=== PATIENT | male | born 1940 | race Caucasian/White ===

== ENCOUNTER 2016-04-21 15:50 | Outpatient (CLI) | payer MEDICARE | END 2016-04-21 15:51 | disposition home or self-care (01) | LOC: NC 15:50 | PROVIDERS: ATTEND Family Medicine | DX: E11.8 Type 2 diabetes mellitus with unspecified complications (principal); Z71.3 Dietary counseling and surveillance; Z87.891 Personal history of nicotine dependence ==

== ENCOUNTER 2016-05-06 17:30 | Outpatient (CLI) | payer MEDICARE | END 2016-05-06 17:31 | disposition home or self-care (01) | LOC: NC 17:30 | PROVIDERS: ATTEND Family Medicine | DX: E11.8 Type 2 diabetes mellitus with unspecified complications (principal); Z71.3 Dietary counseling and surveillance ==

== ENCOUNTER 2016-05-13 17:30 | Outpatient (CLI) | payer MEDICARE | END 2016-05-13 17:31 | disposition home or self-care (01) | LOC: NC 17:30 | PROVIDERS: ATTEND Family Medicine | DX: E11.8 Type 2 diabetes mellitus with unspecified complications (principal); Z71.3 Dietary counseling and surveillance; Z68.36 Body mass index [BMI] 36.0-36.9, adult; I25.810 Atherosclerosis of coronary artery bypass graft(s) without angina pectoris; E78.00 Pure hypercholesterolemia, unspecified; I10 Essential (primary) hypertension ==

== ENCOUNTER 2016-05-20 17:30 | Outpatient (CLI) | payer MEDICARE | END 2016-05-20 17:31 | disposition home or self-care (01) | LOC: NC 17:30 | PROVIDERS: ATTEND Family Medicine | DX: Z71.3 Dietary counseling and surveillance (principal); E11.8 Type 2 diabetes mellitus with unspecified complications ==

== ENCOUNTER → 2016-05-27 | Outpatient (CLI) | payer MEDICARE | END | disposition home or self-care (01) | LOC: NC 17:30 | PROVIDERS: ATTEND Family Medicine | DX: E11.8 Type 2 diabetes mellitus with unspecified complications (principal); Z71.3 Dietary counseling and surveillance; Z68.36 Body mass index [BMI] 36.0-36.9, adult; Z87.891 Personal history of nicotine dependence ==

== ENCOUNTER 2016-06-16 09:14 | Inpatient (IN) | payer MEDICARE ==
[2016-06-16] MEDS ORDERED: IOPAMIDOL 370 (76%) 100 ML VIAL IV ONE (09:15)
[2016-06-16] MEDS ORDERED: LACTATED RINGERS 1,000 ML ONE (09:42)
[2016-06-16 09:58] LABS: ABSOLUTE NEUTROPHIL COUNT 12.7 K/mm3 (1.8-7.7); BASO % 0.1 % (0.2-1.0); HEMATOCRIT 40.1 % (32.0-52.0); HEMOGLOBIN 13.3 gm/l (14.0-18.0); IMM NEUT # 0.1 K/mm3 (0-0.2); IMM NEUT% 0.6 % (0-1); LYMPH # 0.3 (1.0-4.8); LYMPH % 2.2 % (15-45); MEAN CELL VOLUME 90.1 fl (80.0-94.0); MEAN CORPUSCULAR HEMOGLOBIN 29.9 pg (27.0-31.0); MEAN CORPUSCULAR HGB CONC 33.2 g/dl (33.0-37.0); MEAN PLATELET VOLUME 8.9 fl (7.4-10.4); MONO # 0.8 (0.0-0.8); MONO % 5.6 % (4-12); NEUT % 91.5 % (43-75); PLATELET COUNT 177 K/mm3 (130-400); RED CELL DISTRIBUTION WIDTH 13.6 % (11.5-14.5)
[2016-06-16 10:19] LABS: ALB/GLOB RATIO 1.4 (>1.0); ALBUMIN 3.7 gm/dL (3.5-5.7); CALCIUM 9.1 mg/dL (8.6-10.3)
[2016-06-16 10:42] LABS: BAND 24 % (0-10); BASOPHIL 0 % (0-1); EOSINOPHIL 0 % (1-3); LYMPHOCYTE 1 % (15-45); MONOCYTE 4 % (4-12); NEUTROPHILS 71 % (43-75); PLATELET ESTIMATE NORMAL (NORMAL); TOTAL CELLS COUNTED 100
--- NOTE | 2016-06-16 11:08 | CT ---
CTA CHEST FOR PE COMPARISON: None HISTORY: Shortness of breath and hemoptysis. Technique: Intravenous injection 80 mL Isovue-370. Using a [employer] Aquilion [address] scanner, following a CT angiogram protocol, images obtained through the thorax. Under concurrent supervision and interpretation, requiring a separate 3-D workstation, the technologist created 3-D CT angiograms. An automated dose reduction technique was used to minimize patient radiation dose. Dose information: DLP(mGycm): 1291.20 FINDINGS: Pulmonary arteries and veins: Excellent contrast opacification. No pulmonary embolism. Aorta: Normal Heart and coronary arteries: Coronary artery atherosclerotic calcific plaquing. Normal heart size. Lungs: Consolidation in the right lower lobe. Trachea and bronchi: Normal. Mediastinum and he: Right hilar adenopathy. Right paratracheal adenopathy. Pleura and pericardium: Normal. Chest wall: Sternotomy wires. Spine: No acute finding. Degenerative changes. Upper abdomen:Normal. 3-D CT angiogram: Normal. IMPRESSION: 1. Right lower lobe lobar pneumonia. Associated right hilar and right paratracheal mediastinal adenopathy. 2. CT pulmonary angiogram negative for pulmonary embolism. The report was sent to the emergency department electronic medical record system 06/16/2016 at 11:10
[2016-06-16] MEDS ORDERED: CEFTRIAXONE 1 GRAM DUPLEX 50 ML IV ONE (11:35)
[2016-06-16] MEDS ORDERED: AZITHROMYCIN 500 MG VIAL ONE (11:35)
[2016-06-16] MEDS ORDERED: SODIUM CHLORIDE 0.9% 250 ML IV ONE (11:35)
[2016-06-16 12:19] VITALS: BMI 35.3
[2016-06-16] MEDS ORDERED: BISACODYL 5 MG TABLET.EC PO PRN (13:01)
[2016-06-16] MEDS ORDERED: BISACODYL 10 MG SUP PR PRN (13:01)
[2016-06-16] MEDS ORDERED: MAGNESIUM HYDROXIDE 30 ML UDCUP PO PRN (13:01)
[2016-06-16] MEDS ORDERED: BLISTEX LIPSTICK 1 EACH TP PRN (13:01)
[2016-06-16] MEDS ORDERED: MENTHOL/CETYLPYRD 1 EACH LOZENGE PO PRN (13:01)
[2016-06-16] MEDS ORDERED: ALBUTEROL NEB 2.5 MG/3 ML VIAL.NEB NEB PRN (13:07)
[2016-06-16] MEDS: AMLODIPINE BESYLATE 5 MG TABLET PO SCH (13:43)
[2016-06-16] MEDS: ISOSORBIDE MONONITRATE 30 MG TAB.SR PO SCH (13:43)
[2016-06-16] MEDS: ENOXAPARIN SODIUM 40 MG/0.4 ML SYRINGE SUB-Q SCH (13:43)
[2016-06-16] MEDS: POLYETHYLENE GLYCOL 3350 17 G POWD.SUSP PO SCH (13:43)
[2016-06-16] MEDS: INSULIN ASPART (DOSE) 100 UNITS/1 ML SUB-Q PRN (13:54)
[2016-06-16] MEDS: METOPROLOL SUCCINATE 25 MG TAB.ER.24H PO SCH (14:05)
--- NOTE | 2016-06-16 14:05 | HP ---
Bandar Singh [id number] : 1940 DATE OF ADMISSION: 06/16/2016 IDENTIFICATION: Mr. Singh is a 76-year-old followed by Dr. April Gamble. CHIEF COMPLAINT: Cough and dyspnea. HISTORY OF PRESENT ILLNESS: Mr. Singh reports cold symptoms for the last week. His had an upper respiratory infection as well, but then last night his dyspnea got much worse, his cough started producing brown sputum and became bloody this morning, and he developed fever with sweats last night. He went into the clinic and was found to be hypoxemic and was referred to the emergency department. On evaluation in the emergency department CT scan of the chest reveals a right lower lobe infiltrate. He also had persistent hypoxemia requiring supplemental oxygen. He was treated with ceftriaxone and azithromycin and referred to the hospitalist service. REVIEW OF SYSTEMS: HEENT: No headache, lightheadedness, or loss of consciousness. Denies problems with eyes, ears, nose, or throat. Respiratory: As per history of present illness. Cardiac: No chest pain or palpitations. Gastrointestinal: No nausea, vomiting, dyspepsia or reflux. He does report constipation, no hematochezia or melana. Genitourinary: No symptoms. Musculoskeletal: Denies symptoms. Constitutional: Has had fever over night. PAST MEDICAL HISTORY: 1. Diabetes mellitus type 2, not on insulin therapy. 2. Hypertension. 3. Coronary artery disease status post three vessel bypass grafting in January 2008. He had transient postoperative atrial fibrillation. 4. Obesity with body mass index of 35.4. 5. Chronic mild anemia. 6. Clinic records indicate dyslipidemia. Patient does not believe that is correct. 7. Vitamin D deficiency. PAST SURGICAL HISTORY: 1. Four different inguinal hernia repair procedures. 2. Coronary artery bypass grafting three vessels in January 2008. ALLERGIES: None known. MEDICATIONS: 1. Isosorbide mononitrate 30 mg by mouth daily. 2. Vitamin D 2000 international units daily. 3. Metoprolol succinate 12.5 mg by mouth daily. 4. Garlic one tablet daily. 5. Amlodipine 10 mg daily. 6. Aspirin 81 mg twice daily. 7. Glipizide 20 mg twice daily. 8. Cyanoclobalamin 2000 mcg by mouth daily. 9. Metformin 1000 mg by mouth daily. 10. Lisinopril 20 mg by mouth daily. 11. Turmeric 500 mg daily. 12. Multivitamin one daily. HABITS: He is a former smoker with a 35 pack year history, but quit 35 years ago. No alcohol or other drugs. SOCIAL HISTORY: Lives with his outside of [place]. They have three dogs. He is active. Was out on a tractor on Wednesday disking a field and grading his driveway. FAMILY HISTORY: Both parents of cancer. Diabetes runs in the family. He had a younger brother who of complications of diabetes. PHYSICAL EXAMINATION: GENERAL: This is a pleasant 76-year-old with audible respiratory rhonchi and coughing. VITAL SIGNS: Temperature 98.9 degrees Fahrenheit, pulse 87, blood pressure 117/54, respiratory rate 20, oxygen saturation 84% on room air, 90% on 5 liters by nasal cannula. HEENT: Pupils equal, round, and reactive. Extraocular muscles intact. Oropharynx is moist. Dentition in moderate condition. CHEST: Rhonchi throughout. Air movement is somewhat decreased. HEART: Regular. No murmur. ABDOMEN: Obese, soft, nontender, normal bowel tones, no organomegaly. EXTREMITIES: Decreased with palpable dorsalis pedis pulses. No cyanosis, clubbing, or edema. NEUROLOGIC: Alert and oriented. No focal deficits. LABORATORIES: White blood cell count 13.9 with 24% bands, 71% neutrophils. Hemoglobin and hematocrit 13.3, and 43.1, platelets 177. Sodium 132, potassium 4.3, chloride 99, CO2 22, BUN 17, creatinine 0.9, glucose 304, bilirubin 2.5, B-type natiuretic peptide 340. DIAGNOSTICS: CT scan of the chest shows right lower lobe pneumonia associated with right hilar and right paratracheal mediastinal adenopathy, negative for pulmonary embolism, no pulmonary vascular congestion was noted. EKG sinus rhythm with bifascicular block. ASSESSMENT: Mr. Singh is a 76-year-old with community acquired presumed bacterial pneumonia accompanied by acute hypoxic respiratory failure. He has underlying chronic mild anemia, diabetes mellitus type 2, not on insulin, coronary artery disease, hypertension, and obesity. He does have an acute hyponatremia related to his acute illness. PLAN: 1. Admit to med/surg. 2. Continue treatment with ceftriaxone and azithromycin. 3. Supplemental oxygen as needed. 4. Respiratory treatments with albuterol and Atrovent. 5. Continue outpatient medications. 6. Full code status. 7. Venous thrombosis prophylaxis with enoxaparin. 8. For diabetes will hold metformin, check blood sugars before meals and evening and cover with insulin as necessary. JOB: [id number]
[2016-06-16] MEDS: ACETAMINOPHEN 325 MG TABLET PO PRN ×2 (15:16→20:56)
[2016-06-16] MEDS: ALBUTEROL/IPRATROPIUM 2.5/0.5 MG 3 ML/EACH DOSE NEB SCH ×2 (15:26→20:42)
[2016-06-16] MEDS: GLIPIZIDE 10 MG TABLET PO SCH (16:50)
[2016-06-16] MEDS: DOCUSATE SODIUM 100 MG CAPSULE PO SCH (20:56)
[2016-06-16] MEDS: ASPIRIN CHEWTAB 81 MG TABLET PO SCH (20:56)
[2016-06-17 06:06] LABS: BASO % 0.3 % (0.2-1.0); EOS # 0.1 (0.0-0.5); EOS % 0.4 % (0.9-2.9); HEMATOCRIT 37.4 % (32.0-52.0); HEMOGLOBIN 12.2 gm/l (14.0-18.0); IMM NEUT # 0.1 K/mm3 (0-0.2); IMM NEUT% 0.7 % (0-1); LYMPH # 0.6 (1.0-4.8); LYMPH % 5.6 % (15-45); MEAN CELL VOLUME 90.8 fl (80.0-94.0); MEAN CORPUSCULAR HEMOGLOBIN 29.6 pg (27.0-31.0); MEAN CORPUSCULAR HGB CONC 32.6 g/dl (33.0-37.0); MEAN PLATELET VOLUME 9.2 fl (7.4-10.4); MONO # 0.6 (0.0-0.8); PLATELET COUNT 180 K/mm3 (130-400); RED CELL DISTRIBUTION WIDTH 13.5 % (11.5-14.5)
[2016-06-17] MEDS ORDERED: NITROGLYCERIN 0.4 MG/TAB.SUBL BOT SL PRN (07:40)
[2016-06-17] MEDS: GLIPIZIDE 10 MG TABLET PO SCH ×2 (08:11→17:12)
[2016-06-17] MEDS: ALBUTEROL/IPRATROPIUM 2.5/0.5 MG 3 ML/EACH DOSE NEB SCH ×4 (08:15→19:44)
[2016-06-17] MEDS: ATORVASTATIN CALCIUM 10 MG TABLET PO SCH (09:23)
[2016-06-17] MEDS: LISINOPRIL 20 MG TABLET PO SCH (09:24)
[2016-06-17] MEDS: AMLODIPINE BESYLATE 5 MG TABLET PO SCH (09:24)
[2016-06-17] MEDS: POLYETHYLENE GLYCOL 3350 17 G POWD.SUSP PO SCH (09:25)
[2016-06-17] MEDS: DOCUSATE SODIUM 100 MG CAPSULE PO SCH ×2 (09:25→21:09)
[2016-06-17] MEDS: ASPIRIN CHEWTAB 81 MG TABLET PO SCH ×2 (09:25→21:09)
[2016-06-17] MEDS: ISOSORBIDE MONONITRATE 30 MG TAB.SR PO SCH (09:25)
[2016-06-17] MEDS: METOPROLOL SUCCINATE 25 MG TAB.ER.24H PO SCH (09:50)
[2016-06-17] MEDS: SODIUM CHLORIDE 0.9% 100 ML IV PRN (11:04)
[2016-06-17] MEDS: CEFTRIAXONE 1 GRAM DUPLEX 1 G in Premix (D5W) 50 ml 1 EACH IV SCH (11:04)
[2016-06-17] MEDS: AZITHROMYCIN 500 MG in SODIUM CHLORIDE 0.9% 250 ML IV SCH (11:43)
[2016-06-17] MEDS: INSULIN ASPART (DOSE) 100 UNITS/1 ML SUB-Q PRN ×2 (12:37→21:18)
--- NOTE | 2016-06-17 12:41 | PDOC43 ---
- Subjective Chief Complaint: pneumonia Patient reports feeling better. Breathing better. Sitting up eating. Strength better. - Objective Vital Signs Temperature 98.8 F 06/17/16 07:56 Pulse Rate 71 06/17/16 12:01 Respiratory Rate 18 06/17/16 12:01 Blood Pressure 115/65 06/17/16 07:56 O2 Saturation by Pulse Oximetry 90 06/17/16 12:01 Oxygen Delivery Method Nasal Cannula Oxygen Flow Rate 4 Vital Signs Last 12 Hours Temp Pulse Resp BP Pulse Ox 06/17/16 12:01 71 18 90 06/17/16 08:15 78 18 92 06/17/16 08:00 18 06/17/16 07:56 98.8 F 78 20 115/65 94 06/17/16 02:00 20 06/17/16 01:28 98.7 F 80 20 117/68 90 Intake and Output 06/15/16 06/16/16 06/17/16 23:59 23:59 23:59 Intake Total 620 1775 Output Total 400 850 Balance 220 925 General: Alert, Cooperative, No Acute Distress Lungs: Other (R posterior lung correa with crackles, rhonchi. Some rhonchi noted anteriorly.) Abdomen: Soft, Normal Bowel Sounds, Non-Distended, No Tenderness Extremities: No Edema, No Tenderness Neurological: Normal Speech Psych/Mental Status: Normal Affect Laboratory 06/17/16 05:30 06/17/16 06/17/16 06/17/16 11:52 08:13 05:30 RBC 4.12 L MCHC 32.6 L POC Capillary Glucose 214 H 135 H 06/16/16 06/16/16 16:48 13:01 RBC MCHC POC Capillary Glucose 146 H 234 H other labs still pending this am, analyzer reported down today Current Medications: Current meds reviewed in EMR. Active Medications Acetaminophen (Tylenol) 650 mg PO Q6H PRN PRN Reason: Pain or Temperature > 100.5 F Last Admin: 06/16/16 20:56 Dose: 650 mg Albuterol Sulfate (Ventolin Inhalation Solution (Dose)) 2.5 mg NEB Q2H PRN PRN Reason: Wheezing Albuterol/Ipratropium (Duoneb) 3 ml NEB 08,12,16,20 TYLER Last Admin: 06/17/16 12:01 Dose: 3 ml Amlodipine Besylate (Norvasc) 10 mg PO DAILY [facility] Last Admin: 06/17/16 09:24 Dose: 10 mg Aspirin (Aspirin Chewtab) 81 mg PO BID [facility] Last Admin: 06/17/16 09:25 Dose: 81 mg Atorvastatin Calcium (Lipitor) 5 mg PO DAILY [facility] Last Admin: 06/17/16 09:23 Dose: 5 mg Benzocaine/Menthol (Cepacol) 1 each PO PRN PRN PRN Reason: Sore Throat Bisacodyl (Dulcolax) 10 mg AL DAILY PRN PRN Reason: Constipation Bisacodyl (Dulcolax) 5 mg PO DAILY PRN PRN Reason: Constipation Docusate Sodium (Colace) 100 mg PO BID [facility] Last Admin: 06/17/16 09:25 Dose: 100 mg Enoxaparin Sodium (Lovenox) 40 mg SUB-Q Q24H [facility] Last Admin: 06/16/16 13:43 Dose: 40 mg [facility]) [facility] Last Admin: 06/17/16 08:11 Dose: 20 mg Azithromycin 500 mg/ Sodium (Chloride) 250 mls @ 250 mls/hr IV Q24H [facility] Stop: 06/18/16 12:59 Last Admin: 06/17/16 11:43 Dose: 250 mls/hr Ceftriaxone Sodium/Dextrose 1 (g/ Premix (D5W) 50 ml) 50 mls @ 100 mls/hr IV Q24H [facility] Last Admin: 06/17/16 11:04 Dose: 100 mls/hr Sodium Chloride (Sodium Chloride 0.9%) 100 mls @ 25 mls/hr IV PRN PRN PRN Reason: Flush Last Admin: 06/17/16 11:04 Dose: 25 mls/hr Insulin Aspart (Novolog (Dose)) 0 units SUB-Q WM/BEDTIME PRN; Protocol PRN Reason: Blood Sugar > Last Admin: 06/16/16 13:54 Dose: 8 units Isosorbide Mononitrate (Imdur) 30 mg PO QAM [facility] Last Admin: 06/17/16 09:25 Dose: 30 mg Lisinopril (Prinivil) 20 mg PO DAILY [facility] Last Admin: 06/17/16 09:24 Dose: 20 mg Magnesium Hydroxide (Milk Of Magnesia) 30 ml PO DAILY PRN PRN Reason: Constipation Metoprolol Succinate (Toprol Xl) 12.5 mg PO DAILY [facility] Last Admin: 06/17/16 09:50 Dose: 12.5 mg Nitroglycerin (Nitrostat) 0.4 mg SL Q5M PRN PRN Reason: Chest Pain Petrolatum/Paraffin/Mineral Oil (Blistex) 1 each TP PRN PRN PRN Reason: Dry and/or chapped lips Polyethylene Glycol/Electrolytes (Miralax) 17 g PO DAILY [facility] Last Admin: 06/17/16 09:25 Dose: 17 g Sodium Chloride (Normal Saline 10ml Flush) 10 ml IV Q8HR [facility] Last Admin: 06/17/16 11:03 Dose: 10 ml Sodium Chloride (Normal Saline 10ml Flush) 10 ml IV PRN PRN Sodium Chloride (Normal Saline 10ml Flush) 10 - 50 ml IV Q8HR [facility] Last Admin: 06/17/16 01:32 Dose: Not Given - Problems: Assessment/Plan (1) Pneumonia Qualifiers: Laterality: right Lung location: lower lobe of lung Status: Acute Assessment/Plan: Patient with community acquired pneumonia; presumed bacterial (but not identified yet), present on admission With acute respiratory distress, requiring 5L O2, now at 4L. Good clinical improvement, will plan continue tx. (2) Hyponatremia Status: AcuteAssessment/Plan: Na 132 on admit, but today's lab still pending. (3) CAD (coronary artery disease) Qualifiers: Associated angina: angina presence unspecified Status: ChronicAssessment/ Plan: Stable, doing well. (4) Diabetes type 2, controlled Qualifiers: Diabetes mellitus skilled nursing insulin use: without skilled nursing use Chronic kidney disease stage: stage 1 Status: ChronicAssessment/Plan: BG mildly elevated. Laboratory Tests 06/16/16 06/16/16 06/16/16 13:01 16:48 22:48 POC Capillary Glucose 234 H 146 H 87 06/17/16 06/17/16 08:13 11:52 POC Capillary Glucose 135 H 214 H (5) Obesity, Class II, BMI 35-39.9 Status: ChronicAssessment/Plan: BMI 35.4, likely affecting care, analilia glucose VTE Prophylaxis: enoxaparin Disposition: Anticipate return to home; but would like to see continued improvement and reduction in supplemental oxygen requirement.
[2016-06-17 13:13] LABS: CALCIUM 8.7 mg/dL (8.6-10.3)
[2016-06-17] MEDS: ENOXAPARIN SODIUM 40 MG/0.4 ML SYRINGE SUB-Q SCH (14:36)
[2016-06-18 06:40] LABS: CALCIUM 8.7 mg/dL (8.6-10.3)
[2016-06-18] MEDS: ALBUTEROL/IPRATROPIUM 2.5/0.5 MG 3 ML/EACH DOSE NEB SCH ×4 (07:43→19:38)
[2016-06-18] MEDS: GLIPIZIDE 10 MG TABLET PO SCH ×2 (07:53→17:08)
[2016-06-18] MEDS: INSULIN ASPART (DOSE) 100 UNITS/1 ML SUB-Q PRN ×4 (08:09→21:32)
[2016-06-18] MEDS: POLYETHYLENE GLYCOL 3350 17 G POWD.SUSP PO SCH (10:00)
[2016-06-18] MEDS: ATORVASTATIN CALCIUM 10 MG TABLET PO SCH (10:01)
[2016-06-18] MEDS: LISINOPRIL 20 MG TABLET PO SCH (10:01)
[2016-06-18] MEDS: METOPROLOL SUCCINATE 25 MG TAB.ER.24H PO SCH (10:01)
[2016-06-18] MEDS: ASPIRIN CHEWTAB 81 MG TABLET PO SCH ×2 (10:01→20:18)
[2016-06-18] MEDS: AMLODIPINE BESYLATE 5 MG TABLET PO SCH (10:01)
[2016-06-18] MEDS: ISOSORBIDE MONONITRATE 30 MG TAB.SR PO SCH (10:01)
[2016-06-18] MEDS: DOCUSATE SODIUM 100 MG CAPSULE PO SCH ×2 (10:02→20:18)
[2016-06-18] MEDS: AZITHROMYCIN 500 MG in SODIUM CHLORIDE 0.9% 250 ML IV SCH (11:46)
[2016-06-18] MEDS: SODIUM CHLORIDE 0.9% 100 ML IV PRN (11:57)
[2016-06-18] MEDS: CEFTRIAXONE 1 GRAM DUPLEX 1 G in Premix (D5W) 50 ml 1 EACH IV SCH (12:58)
[2016-06-18] MEDS: ENOXAPARIN SODIUM 40 MG/0.4 ML SYRINGE SUB-Q SCH (13:29)
--- NOTE | 2016-06-18 14:19 | PDOC43 ---
- Subjective Chief Complaint: pneumonia Breathing a little easier, sputum less red. - Objective Vital Signs Temperature 98.1 F 06/18/16 08:14 Pulse Rate 70 06/18/16 13:10 Respiratory Rate 18 06/18/16 13:10 Blood Pressure 134/66 06/18/16 08:14 O2 Saturation by Pulse Oximetry 91 06/18/16 13:10 Oxygen Delivery Method Nasal Cannula Oxygen Flow Rate 1.5 Intake and Output 06/17/16 06/18/16 06/19/16 06:59 06:59 06:59 Intake Total 2070 3454 Output Total 1250 2050 Balance 820 1404 General: Alert, Oriented x3, Cooperative, No Acute Distress HEENT: Mucous membr. moist/pink Lungs: Other (ronchi at bases R>L) Cardiovascular: Regular Rate and Rhythm Abdomen: Soft, Normal Bowel Sounds, No Tenderness, No Masses Extremities: Edema (trace at ankles), Normal Pulses Skin: Normal Color Neurological: Normal Speech Psych/Mental Status: Normal Mood Laboratory 06/17/16 05:30 06/18/16 05:30 06/18/16 06/18/16 06/18/16 11:45 07:51 05:30 Estimated GFR 110 H POC Capillary Glucose 271 H 196 H 06/17/16 06/17/16 21:12 17:11 Estimated GFR POC Capillary Glucose 249 H 143 H Current Medications: Current meds reviewed in EMR. - Problems: Assessment/Plan (1) Pneumonia Qualifiers: Pneumonia type: due to unspecified organism Laterality: right Lung location: lower lobe of lung Qualifier Code: (J18.1) Lobar pneumonia, unspecified organism Status: AcuteAssessment/Plan: Patient with community acquired pneumonia; presumed bacterial, present on admission With acute respiratory failure, requiring 5L O2, now at 1.5L. Good clinical improvement, will plan continue tx. Sputum with normal john, blood cx negative. (2) Hyponatremia Status: AcuteAssessment/Plan: resolved. (3) CAD (coronary artery disease) Qualifiers: Coronary Disease-Associated Artery/Lesion type: bypass graft [place] vs. transplanted heart: [place] heart Associated angina: without angina Qualifier Code: (I25.810) Atherosclerosis of coronary artery bypass graft(s) without angina pectoris Status: ChronicAssessment/Plan: Stable, doing well. (4) Diabetes type 2, controlled Qualifiers: Diabetes mellitus half-way insulin use: without terminal computer operator use Chronic kidney disease stage: stage 1 Status: ChronicAssessment/Plan: BG mildly elevated. Laboratory Tests 06/16/16 06/16/16 06/16/16 13:01 16:48 22:48 POC Capillary Glucose 234 H 146 H 87 06/17/16 06/17/16 08:13 11:52 POC Capillary Glucose 135 H 214 H (5) Obesity, Class II, BMI 35-39.9 Status: ChronicAssessment/Plan: BMI 35.4, likely affecting care, analilia glucose (6) Anemia Status: ChronicAssessment/Plan: mild,stable (7) Dyslipidemia Status: ChronicAssessment/Plan: stable (8) HTN (hypertension), benign Status: ChronicAssessment/Plan: well controlled. VTE Prophylaxis: enoxaparin Disposition: Anticipate return to home when off O2, possibly tomorrow.
--- NOTE | 2016-06-19 07:28 | PDOC5 ---
ADMIT DATE: 06/16/16 DISCHARGE DATE: 06/19/16 ADMISSION DIAGNOSES: RLL Pneumonia PROCEDURES PERFORMED THIS HOSPITALIZATION: CTA Chest--RLL pneumonia, no PE CONSULTATIONS: none HOSPITAL COURSE: This is a 76 year old who had URI symptoms for a week then developed bloody sputum and hypoxemia. He was admitted and treated with ceftriaxone and azithromycin. He improved steadily and on June 19 he has no O2 requirement and will be discharged. - Exam Vital Signs Temperature 98.1 F 06/19/16 01:00 Pulse Rate 73 06/19/16 01:00 Respiratory Rate 16 06/19/16 06:47 Blood Pressure 114/54 06/19/16 01:00 O2 Saturation by Pulse Oximetry 94 06/19/16 06:47 Oxygen Delivery Method Room Air Oxygen Flow Rate 0 General: Alert, Oriented x3, Cooperative, No Acute Distress HEENT: Mucous membr. moist/pink Lungs: Clear to Auscultation Bilaterally Cardiovascular: Regular Rate and Rhythm Abdomen: Soft, Normal Bowel Sounds, No Tenderness, No Masses Extremities: Pulses Diminished but Palpable, No Edema Skin: Normal Color Neurological: Normal Speech Psych/Mental Status: Normal Mood - Results Laboratory 06/17/16 05:30 06/18/16 05:30 06/18/16 06/18/16 06/18/16 21:12 17:12 11:45 POC Capillary Glucose 288 H 180 H 271 H 06/18/16 07:51 POC Capillary Glucose 196 H - Problems:Assessment/Plan (1) Pneumonia Qualifiers: Pneumonia type: due to unspecified organism Laterality: right Lung location: lower lobe of lung Qualifier Code: (J18.1) Lobar pneumonia, unspecified organism Status: AcuteAssessment/Plan: Patient with community acquired pneumonia; presumed bacterial, present on admission With acute respiratory failure, requiring 5L O2, now no longer has any hypoxemia or O2 requirement. Good clinical improvement, change to oral cefprozil and discharge home Sputum with normal john, blood cx negative. (2) Hyponatremia Status: AcuteAssessment/Plan: resolved. (3) CAD (coronary artery disease) Qualifiers: Coronary Disease-Associated Artery/Lesion type: bypass graft [place] vs. transplanted heart: [place] heart Associated angina: without angina Qualifier Code: (I25.810) Atherosclerosis of coronary artery bypass graft(s) without angina pectoris Status: ChronicAssessment/Plan: Stable, doing well. (4) Diabetes type 2, controlled Qualifiers: Diabetes mellitus terminal manager insulin use: without terminal manager use Chronic kidney disease stage: stage 1 Status: ChronicAssessment/Plan: BG mildly elevated. Resume metformen on discharge. Laboratory Tests 06/16/16 06/16/16 06/16/16 13:01 16:48 22:48 POC Capillary Glucose 234 H 146 H 87 06/17/16 06/17/16 08:13 11:52 POC Capillary Glucose 135 H 214 H (5) Obesity, Class II, BMI 35-39.9 Status: ChronicAssessment/Plan: BMI 35.4, likely affecting care, analilia glucose (6) Anemia Status: ChronicAssessment/Plan: mild,stable (7) Dyslipidemia Status: ChronicAssessment/Plan: stable (8) HTN (hypertension), benign Status: ChronicAssessment/Plan: well controlled. - Disposition: Disposition: Home - Discharge Plan Forms: Discharge Instructions Prescriptions: Cefprozil 250 mg [CEFZIL 250 MG TABLET (SHF)] 250 mg PO BID 7 Days Follow-Up: April Gamble MD [Primary Care Provider] - In 7-10 days Condition: Good Disposition: Home
[2016-06-19] MEDS: GLIPIZIDE 10 MG TABLET PO SCH (07:41)
[2016-06-19] MEDS: INSULIN ASPART (DOSE) 100 UNITS/1 ML SUB-Q PRN (07:42)
[2016-06-19] MEDS: ALBUTEROL/IPRATROPIUM 2.5/0.5 MG 3 ML/EACH DOSE NEB SCH (07:58)
[2016-06-19] MEDS: ATORVASTATIN CALCIUM 10 MG TABLET PO SCH (08:48)
[2016-06-19] MEDS: ISOSORBIDE MONONITRATE 30 MG TAB.SR PO SCH (08:48)
[2016-06-19] MEDS: DOCUSATE SODIUM 100 MG CAPSULE PO SCH (08:48)
[2016-06-19] MEDS: ASPIRIN CHEWTAB 81 MG TABLET PO SCH (08:48)
[2016-06-19] MEDS: POLYETHYLENE GLYCOL 3350 17 G POWD.SUSP PO SCH (08:49)
[2016-06-19] MEDS: AMLODIPINE BESYLATE 5 MG TABLET PO SCH (08:51)
[2016-06-19] MEDS: LISINOPRIL 20 MG TABLET PO SCH (08:51)
[2016-06-19] MEDS: METOPROLOL SUCCINATE 25 MG TAB.ER.24H PO SCH (08:52)
[2016-06-19 08:56] VITALS: BP 144/76
== END 2016-06-19 09:05 | disposition home or self-care (01) | DRG 193 ==
LOC: ED 09:14 → MS 11:32
PROVIDERS: ADMIT Family Medicine; ATTEND Family Medicine
DX: J18.1 Lobar pneumonia, unspecified organism (principal); J96.01 Acute respiratory failure with hypoxia; E87.1 Hypo-osmolality and hyponatremia; I25.10 Atherosclerotic heart disease of native coronary artery without angina pectoris; E11.22 Type 2 diabetes mellitus with diabetic chronic kidney disease; I12.9 Hypertensive chronic kidney disease with stage 1 through stage 4 chronic kidney disease, or unspecified chronic kidney disease; N18.1 Chronic kidney disease, stage 1; Z79.84 Long term (current) use of oral hypoglycemic drugs; E66.9 Obesity, unspecified; Z68.35 Body mass index [BMI] 35.0-35.9, adult; E78.5 Hyperlipidemia, unspecified; D64.9 Anemia, unspecified